=== PATIENT | female | born 1960 | race Caucasian/White ===

== ENCOUNTER 2024-02-25 17:21 | Emergency (ER) | payer OTHER ==
[~2024-02-25] VITALS: Ht 165.1 cm; Wt 59.4 kg
[2024-02-25 21:56] LABS: BASOPHILS # (AUTO) 0.1 K/uL (0.0-0.2); BASOPHILS % (AUTO) 0.6 % (0.0-2.0); EOSINOPHILS # (AUTO) 0.5 K/uL (0.0-0.7); HEMATOCRIT 40 % (33-45); HEMOGLOBIN 13.6 g/dL (11.5-14.8); LYMPHOCYTES % (AUTO) 31.7 % (20.0-44.0); MEAN CORPUSCULAR HEMOGLOBIN 31 PG (26.0-33.0); MEAN CORPUSCULAR HGB CONC 34 g/dl (31.0-36.0); MEAN CORPUSCULAR VOLUME 92 fL (82-100); MONOCYTES # (AUTO) 0.6 K/uL (0.1-1.30); MONOCYTES % (AUTO) 6.1 % (2.0-12.0); NEUTROPHILS # (AUTO) 5.4 K/uL (1.8-8.9); NEUTROPHILS % (AUTO) 56.6 % (43.0-81.0); PLATELET COUNT (AUTO) 378 K/uL (150-450); RED BLOOD CELL COUNT(AUTO) 4.38 MIL/uL (4.0-5.2); RED CELL DISTRIBUTION WIDTH 13.9 % (11.5-15.0); WHITE BLOOD COUNT (AUTO) 9.5 K/uL (4.3-11.0)
[2024-02-25 22:36] LABS: CALCIUM, SERUM 8.9 mg/dL (8.5-10.1); CREATININE 0.7 mg/dL (0.6-1.3); POTASSIUM 4.6 mmol/L (3.5-5.1)
[2024-02-25 22:45] LABS: LACTIC ACID 0.4 mmol/L (0.4-2.0)
[2024-02-25 22:52] LABS: ALBUMIN 3.4 g/dL (3.4-5.0); BILIRUBIN,TOTAL 0.4 mg/dL (0.2-1.0); TOTAL PROTEIN, SERUM 7.2 g/dL (6.4-8.2)
[2024-02-25 23:00] LABS: ERYTHROCYTE SEDIMENTATION RATE 5 MM/HR (0-30)
[2024-02-25] MEDS ORDERED: hydrOXYzine HCL SYRUP 10 MG/5 ML UDC PO STA (23:19)
[2024-02-25] MEDS ORDERED: methylPREDNISolone SOD SUCC 125 MG/2ML VIAL IM ONE (23:30)
[2024-02-25] MEDS ORDERED: PRED50TA PO (23:39)
[2024-02-25] MEDS ORDERED: CEPH500C2 PO (23:39)
[2024-02-25] MEDS ORDERED: HYDR-3895 PO (23:39)
[2024-02-25] MEDS ORDERED: hydrOXYzine 10 MG TABLET ONE (23:40)
[2024-02-25] MEDS ORDERED: methylPREDNISolone SOD SUCC 125 MG/2ML VIAL ONE (23:40)
[2024-02-26 00:24] VITALS: BP 123/80; TEMP 98; O2SAT 99
== END 2024-02-26 00:24 | disposition home or self-care (01) ==
LOC: ER 17:51
DX: L30.9 Dermatitis, unspecified (principal); Z79.52 Long term (current) use of systemic steroids
CPT/HCPCS: 99283; 85025; 83605; 85652; 36415; 80053; Q0177; J2919